=== PATIENT | female | born 1990 | race African-American/Black ===

== ENCOUNTER 2017-02-09 18:28 | Emergency (ER) | payer OTHER ==
[~2017-02-09] VITALS: Ht 172.7 cm; Wt 84.4 kg
[2017-02-09 21:57] VITALS: BP 132/80
== END 2017-02-09 21:57 | disposition home or self-care (01) ==
LOC: ED 18:28
DX: O99.711 Diseases of the skin and subcutaneous tissue complicating pregnancy, first trimester (principal); O23.41 Unspecified infection of urinary tract in pregnancy, first trimester; L50.0 Allergic urticaria; Z3A.01 Less than 8 weeks gestation of pregnancy
CPT/HCPCS: J7512; Q0163

== ENCOUNTER 2019-02-28 16:56 | Emergency (ER) | payer OTHER ==
[~2019-02-28] VITALS: Ht 172.7 cm; Wt 91.2 kg
[2019-02-28 17:00] VITALS: Ht 172.7 cm; Wt 91.2 kg
[2019-02-28 18:54] VITALS: BP 149/67
== END 2019-02-28 18:54 | disposition home or self-care (01) ==
LOC: ED 16:56
DX: S20.211A Contusion of right front wall of thorax, initial encounter (principal); W18.11XA Fall from or off toilet without subsequent striking against object, initial encounter; Y93.89 Activity, other specified; Y92.89 Other specified places as the place of occurrence of the external cause; Y99.8 Other external cause status
CPT/HCPCS: J1885